=== PATIENT | female | born 1995 | race African-American/Black ===

== ENCOUNTER 2020-12-10 01:35 | Observation (INO) ==
[2020-12-10] MEDS ORDERED: ONDANSETRON 4 MG/2 ML VIAL ONE ×2 (01:47→10:27)
[2020-12-10] MEDS ORDERED: HYDROmorphone 2 MG/1 ML VIAL ONE (01:47)
[2020-12-10] MEDS ORDERED: HYDROmorphone 2 MG/1 ML VIAL IV ONE (01:48)
[2020-12-10] MEDS ORDERED: ONDANSETRON 4 MG/2 ML VIAL IV STA (01:48)
[2020-12-10 01:57] LABS: Basophils # 0.1 10*3/uL (0.0-0.2); Basophils % 0.4 % (0.0-0.8); Eosinophils # 0.1 10*3/uL (0.0-0.87); Eosinophils % 0.7 % (0.00-10.9); Hematocrit 39.2 VOL% (35.7-47.0); Hemoglobin 12.2 GM/DL (12.0-16.0); Immature Granulocytes % 0.3 %; Immature Granulocytes Absolute 0.04 #; Lymphocytes # 2.3 10*3/uL (1.4-4.0); Lymphocytes % 18.3 % (21.3-54.2); Mean Corpuscular HGB Conc 31.1 GM/DL (32-36); Mean Corpuscular Volume 86.2 FL (87-102); Mean Platelet Volume 11.2 FL (9.6-12.0); Monocytes % 4.8 % (1.7-12.7); Neutrophils % 75.5 % (38.7-73.9); Platelet Count 262 T/CUMM (130-400); Red Blood Count 4.55 MC/CUMM (3.8-5.5); White Blood Count 12.5 T/CUMM (4-12)
[2020-12-10 02:14] LABS: Alanine Aminotransferase 18 U/L (13-56); Albumin 3.9 G/DL (3.4-5.0); Alkaline Phosphatase 65 U/L (45-117); Aspartate Amino Transferase 17 U/L (0-37); Bilirubin,Total < 0.39 MG/DL (0.2-1.0); Blood Urea Nitrogen 19 MG/DL (7-18); Calcium 8.6 MG/DL (8.5-10.1); Carbon Dioxide 24 MMOL/L (21-32); Estimated Glom Filtration Rate 102 ML/MIN; Glucose 94 MG/DL (74-106); Osmolality,Calculated 280.4 MOS/KG (273-304); Potassium 3.7 MMOL/L (3.5-5.1); Sodium 140 MMOL/L (136-145); Total Protein 7.8 G/DL (5.0-7.5)
[2020-12-10] MEDS ORDERED: HYDROmorphone 2 MG/1 ML VIAL IV STA (02:54)
[2020-12-10] MEDS ORDERED: ONDANSETRON 4 MG/2 ML VIAL IV PRN (04:08)
[2020-12-10] MEDS ORDERED: MAGNESIUM HYDROXIDE SUSP 30 ML UDCUP PO PRN (04:08)
[2020-12-10] MEDS: HYDROmorphone 2 MG/1 ML VIAL IV PRN (05:27)
[2020-12-10 06:14] LABS: Albumin 3.8 G/DL (3.4-5.0); Bilirubin,Total 0.5 MG/DL (0.2-1.0); Calcium 8.5 MG/DL (8.5-10.1); Osmolality,Calculated 280.4 MOS/KG (273-304); Total Protein 7.3 G/DL (5.0-7.5)
[2020-12-10] MEDS: SODIUM CHLORIDE 0.9% 1,000 ML IV SCH ×2 (06:44→18:32)
[2020-12-10] MEDS ORDERED: fentaNYL 100 MCG/2 ML VIAL ONE ×2 (08:57→09:10)
[2020-12-10] MEDS ORDERED: MIDAZOLAM 2 MG/2 ML VIAL ONE ×2 (08:57→09:10)
[2020-12-10] MEDS ORDERED: DEXAMETHASONE 4 MG/1 ML VIAL ONE ×2 (08:57→10:27)
[2020-12-10] MEDS ORDERED: LIDOCAINE 1% 5 ML VIAL ONE (08:57)
[2020-12-10] MEDS ORDERED: ROPIVACAINE 0.5% 30 ML VIAL ONE (08:57)
[2020-12-10] MEDS ORDERED: propofoL 200 MG/20 ML VIAL IV ONE (09:10)
[2020-12-10] MEDS ORDERED: LIDOCAINE 2% 5 ML VIAL ONE (09:10)
[2020-12-10] MEDS: LACTATED RINGERS 1,000 ML IV SCH ×2 (09:58→10:01)
[2020-12-10] MEDS ORDERED: ceFAZolin 1,000 MG VIAL ONE (10:00)
[2020-12-10] MEDS ORDERED: PHENYLEPHRINE 1 MG/10 ML SYRINGE IV ONE (10:06)
[2020-12-10] MEDS ORDERED: LACTATED RINGERS 1,000 ML IV ONE (10:06)
[2020-12-10] MEDS ORDERED: ePHEDrine 50 MG/ML VIAL ONE (10:10)
[2020-12-10] MEDS ORDERED: ACETAMINOPHEN 1,000 MG/100 ML VIAL IV ONE (10:29)
[2020-12-10] MEDS ORDERED: SEVOFLURANE 1 UNIT/15 MINUTE INH ONE (10:48)
[2020-12-11] MEDS: SODIUM CHLORIDE 0.9% 1,000 ML IV SCH (02:29)
[2020-12-11] MEDS: HYDROmorphone 2 MG/1 ML VIAL IV PRN ×3 (03:43→11:58)
[2020-12-11] MEDS ORDERED: KETOROLAC 10 MG PO PRN (09:01)
[2020-12-11 11:12] VITALS: BP 122/78
[2020-12-11] MEDS ORDERED: CITALOPRAM 20 MG TABLET PO SCH (12:00)
== END 2020-12-11 13:47 | disposition home or self-care (01) ==
LOC: EDUNIT# → EDBD → N.ED 01:35 → N.EDINP 01:35 → N.3E 03:45
PROVIDERS: ADMIT Orthopaedic Surgery; ATTEND Orthopaedic Surgery